=== PATIENT | female | born 1970 ===

== ENCOUNTER 2017-04-19 11:25 | Observation (INO) | payer MEDICAID ==
[2017-04-19 12:24] VITALS: BMI 43.0
[2017-04-19] MEDS ORDERED: Sodium Chloride 0.9% 1,000 ML IV STA (12:28)
--- NOTE | 2017-04-19 13:04 | ED PDOC ---
Arrival/HPI - General Chief Complaint: Abdominal Pain Time Seen by Provider: 04/19/17 12:28 Historian: Patient - History of Present Illness Narrative History of Present Illness (Text): 04/19/17 13:15 A 47 year old female presents to the emergency department complaining of nausea , vomiting and abdominal pain on and off for a year, worsening for the past three days. Patient reports epigastric and right upper quadrant abdominal pain that radiates under her left breast and to her back. Notes abdominal pain is worse after eating certain foods, like burgers. Reports four past caesarean sections but denies any other surgeries. Patient denies any other complaints at this time. PMD: Dr. Anitra Peters Symptom Onset: Sudden Symptom Course: Unchanged Activities at Onset: Rest Context: Home Past Medical History - Provider Review Nursing Documentation Reviewed: Yes - Infectious Disease Hx of Infectious Diseases: None - Tetanus Immunization Tetanus Immunization: Unknown - Reproductive Menopause: No - Cardiac Hx Cardiac Disorders: Yes (Chest pain off & on.) - Pulmonary Hx Asthma: Yes (When she was young.) Hx Bronchitis: Yes (3 years ago.) - Neurological Hx Neurological Disorder: No - HEENT Hx HEENT Disorder: No - Renal Hx Renal Disorder: No - Endocrine/Metabolic Hx Hypothyroidism: Yes - Hematological/Oncological Hx Blood Disorders: No - Integumentary Hx Dermatological Disorder: No - Musculoskeletal/Rheumatological Hx Back Pain: Yes (Low back pain.) - Gastrointestinal Hx Gastrointestinal Disorders: Yes Hx Gastroesophageal Reflux: Yes - Genitourinary/Gynecological Hx Genitourinary Disorders: No - Psychiatric Hx Depression: No Hx Emotional Abuse: No Hx Physical Abuse: No Hx Substance Use: No - Surgical History Hx Section: Yes - Anesthesia Hx Anesthesia: No Hx Anesthesia Reactions: No Hx Malignant Hyperthermia: No - Suicidal Assessment Feels Threatened In Home Enviroment: No Family/Social History - Physician Review Nursing Documentation Reviewed: Yes Family/Social History: No Known Family HX Smoking Status: Former Smoker Hx Alcohol Use: No Hx Substance Use: No Allergies/Home Meds Allergies/Adverse Reactions: Allergies No Known Allergies Allergy (Verified 04/19/17 12:24) Home Medications: Home Meds Medication Instructions Recorded Confirmed Levothyroxine [Synthroid] 0.2 mg PO DAILY 11/28/13 09/18/15 Aspirin [Aspirin EC] 81 mg PO DAILY 07/18/15 09/18/15 Lovastatin [Mevacor] 40 mg PO DAILY 08/13/15 09/18/15 Metformin HCl [Metformin HCl] 850 mg PO BID 08/13/15 09/18/15 Review of Systems - Physician Review All systems were reviewed & negative as marked: Yes - Review of Systems Gastrointestinal: Abdominal Pain, Nausea, Vomiting Musculoskeletal: Back Pain Physical Exam Vital Signs Reviewed: Yes Vital Signs Temp Pulse Resp BP Pulse Ox 04/19/17 16:13 69 18 138/75 99 04/19/17 12:19 99.1 F 77 18 128/75 98 Temperature: Afebrile Blood Pressure: Normal Pulse: Regular Respiratory Rate: Normal Appearance: Positive for: Well-Appearing, Non-Toxic, Comfortable Pain Distress: None Mental Status: Positive for: Alert and Oriented X 3 - Systems Exam Head: Present: Atraumatic, Normocephalic Pupils: Present: PERRL Extroacular Muscles: Present: EOMI Conjunctiva: Present: Normal Mouth: Present: Moist Mucous Membranes Neck: Present: Normal Range of Motion Respiratory/Chest: Present: Clear to Auscultation, Good Air Exchange. No: Respiratory Distress, Accessory Muscle Use Cardiovascular: Present: Regular Rate and Rhythm, Normal S1, S2. No: Murmurs Abdomen: Present: Tenderness (to palpation of RUQ and epigastric ), Normal Bowel Sounds. No: Distention, Peritoneal Signs Back: Present: Normal Inspection Upper Extremity: Present: Normal Inspection. No: Cyanosis, Edema Lower Extremity: Present: Normal Inspection. No: Edema Neurological: Present: GCS=15, CN II-XII Intact, Speech Normal Skin: Present: Warm, Dry, Normal Color. No: Rashes Psychiatric: Present: Alert, Oriented x 3, Normal Insight, Normal Concentration Medical Decision Making ED Course and Treatment: 04/19/17 13:03 Impression: A 47 year old female with nausea, vomiting and right upper quadrant abdominal pain. Differential Diagnosis included but are not limited to: r/o cholelithiasis Plan: -- US abdomen -- labs -- Urinalysis -- Pepcid, IV fluids, ZOfran -- Reassess and disposition Prior Visits: Notes and results from previous visits were reviewed. Patient last reported to the emergency department on 09/18/15 for evaluation of cough and asthma exacerbation. Progress Notes: 04/19/17 14:22 US abdomen Creator : Maddy Vences V. IMPRESSION: Large gallstone, 2.8 cm -near gallbladder neck. Positive sonographic Rizo sign. An intermittent/ early cholecystitis needs to be considered. At this time , no gallbladder wall thickening or pericholecystic fluid suggested. Close follow-up recommended. No dilated ducts - Lab Interpretations Lab Results: 04/19/17 13:01 04/19/17 13:01 Lab Results 04/19/17 13:38: Urine Color Yellow, Urine Appearance Clear, Urine pH 6.0, Ur Specific [place] >= 1.030, Urine Protein 30 H, Urine Glucose (UA) Negative, Urine Ketones Negative, Urine Blood Large H, Urine Nitrate Negative, Urine Bilirubin Negative, Urine Urobilinogen 0.2, Ur Leukocyte Esterase Negative, Urine RBC Tntc, Urine WBC 5 - 10, Ur Epithelial Cells 10 - 12, Urine Bacteria Trace 04/19/17 13:01: Sodium 140, Potassium 4.1, Chloride 105, Carbon Dioxide 24, Anion Gap 15, BUN 12, Creatinine 0.5, Est GFR ( Amer) > 60, Est GFR (Non- Af Amer) > 60, Random Glucose 114 H, Calcium 9.7, Total Bilirubin 0.4, AST 19, ALT 24, Alkaline Phosphatase 145 H, Total Protein 8.3, Albumin 4.5, Globulin 3.8 , Albumin/Globulin Ratio 1.2, Lipase 31 04/19/17 13:01: WBC 11.6 H, RBC 4.91, Hgb 11.8 L, Hct 37.8, MCV 77.0 L, MCH 24.0 L, MCHC 31.2, RDW 16.8 H, Plt Count 326, MPV 9.9, Gran % 64.4, Lymph % ( Auto) 21.6 L, [place] % (Auto) 8.9 H, Eos % (Auto) 4.9, Baso % (Auto) 0.2, Gran # 7.43 H, Lymph # 2.5, [place] # 1.0 H, Eos # 0.6, Baso # 0.02 I have reviewed the lab results: Yes - RAD Interpretation Radiology Orders: 04/19/17 12:45 ABDOMEN COMPLETE [US] Stat 04/19/17 17:57 BILIARY SCAN (HIDA) [NM] Stat - Medication Orders Current Medication Orders: Discontinued Medications Famotidine (Pepcid) 20 mg IVP STAT STA Stop: 04/19/17 12:29 Last Admin: 04/19/17 13:00 Dose: 20 mg Sodium Chloride (Sodium Chloride 0.9%) 1,000 mls @ 250 mls/hr IV .Q4H STA Stop: 04/19/17 16:27 Last Admin: 04/19/17 13:01 Dose: 250 mls/hr Morphine Sulfate (Morphine) 4 mg IVP STAT STA Stop: 04/19/17 14:33 Last Admin: 04/19/17 14:44 Dose: 4 mg Morphine Sulfate (Morphine) 4 mg IVP STAT STA Stop: 04/19/17 17:32 Last Admin: 04/19/17 17:52 Dose: 4 mg Ondansetron HCl (Zofran Inj) 4 mg IVP STAT STA Stop: 04/19/17 12:29 Last Admin: 04/19/17 13:00 Dose: 4 mg Ondansetron HCl (Zofran Inj) 4 mg IVP STAT STA Stop: 04/19/17 17:32 Last Admin: 04/19/17 17:50 Dose: 4 mg - Scribe Statement The provider has reviewed the documentation as recorded by the Kwasi Anaya Provider Scribe Attestation: All medical record entries made by the Kwasi were at my direction and personally dictated by me. I have reviewed the chart and agree that the record accurately reflects my personal performance of the history, physical exam, medical decision making, and the department course for this patient. I have also personally directed, reviewed, and agree with the discharge instructions and disposition. Disposition/Present on Arrival - Present on Arrival Any Indicators Present on Arrival: No History of DVT/PE: No History of Uncontrolled Diabetes: No Urinary Catheter: No History of Decub. Ulcer: No History Surgical Site Infection Following: None - Disposition Have Diagnosis and Disposition been Completed?: Yes Diagnosis: Cholecystitis Disposition Time: 17:00 Condition: STABLE
[2017-04-19 13:05] LABS: BASO # 0.02 K/mm3 (0.0-2.0); BASO % 0.2 % (0.0-3.0); EOS # 0.6 (0.0-0.7); EOS % 4.9 % (1.5-5.0); GRAN # 7.43 (1.4-6.5); GRAN % 64.4 % (50.0-68.0); HEMOGLOBIN 11.8 gm/dL (12.0-16.0); LYMPH # 2.5 (1.2-3.4); LYMPH % 21.6 % (22.0-35.0); MEAN CORPUSCULAR HGB CONC 31.2 g/dl (31.0-37.0); MEAN PLATELET VOLUME 9.9 fl (7.0-11.0); MONO % 8.9 % (1.0-6.0); PLATELET COUNT 326 10^3/uL (120.0-450.0); RBC 4.91 10^6/uL (3.5-6.1); RED CELL DISTRIBUTION WIDTH 16.8 % (11.5-14.5); WHITE BLOOD COUNT 11.6 10^3/ul (4.5-11.0)
[2017-04-19 13:15] LABS: ALB/GLOB RATIO 1.2 (1.1-1.8); ALBUMIN 4.5 g/dL (3.0-4.8); ALT/SGPT 24 U/L (7-56); AST/SGOT 19 U/L (15-39); BLOOD UREA NITROGEN 12 mg/dL (7-21); CALCIUM 9.7 mg/dL (8.4-10.5); GFR AFRICAN-AMERICAN > 60; GFR NON-AFRICAN AMERICAN > 60; LIPASE 31 U/L (23-300)
[2017-04-19 13:52] LABS: URINE APPEARANCE CLEAR (CLEAR); URINE BILIRUBIN NEGATIVE (NEGATIVE); URINE BLOOD LARGE (NEGATIVE); URINE COLOR YELLOW (YELLOW); URINE GLUCOSE (UA) NEGATIVE (NEGATIVE); URINE LEUKOCYTE ESTERASE NEGATIVE Leu/uL (NEGATIVE); URINE NITRATE NEGATIVE (NEGATIVE); URINE PROTEIN 30 mg/dL (<30 mg/dL); URINE UROBILINOGEN 0.2 E.U./dL (<1 E.U./dL)
[2017-04-19 13:54] LABS: URINE RBC TNTC /hpf (0-2)
[2017-04-19 13:55] LABS: URINE BACTERIA TRACE (NEG)
--- NOTE | 2017-04-19 14:20 | US ---
HISTORY: epigastric and RUQ tenderness COMPARISON: None TECHNIQUE: Sonographic evaluation of the abdomen. FINDINGS: LIVER: Measures 19.1 x 10.1 x 10.8 cm. Normal echogenicity of the liver parenchyma. No mass. No intrahepatic bile duct dilatation. GALLBLADDER: Large gallstone measuring at least 2.8 cm. Near the gallbladder neck. Positive sonographic Rizo sign elicited no pericholecystic fluid. No gallbladder wall edema COMMON BILE DUCT: Measures 5 mm. No stones. No dilatation. PANCREAS: Unremarkable as visualized. No mass. No ductal dilatation. RIGHT KIDNEY: Measures 10.6 x 4.1 x 3.8cm. Normal echogenicity. No calculus, mass, or hydronephrosis. LEFT KIDNEY: Measures 11.7 x 5.9 x 5.2cm. Normal echogenicity. No calculus, mass, or hydronephrosis. SPLEEN: Normal in size and contour. No mass. AORTA: No aneurysmal dilatation. IVC: Unremarkable. OTHER FINDINGS: None. IMPRESSION: Large gallstone, 2.8 cm -near gallbladder neck. Positive sonographic Rizo sign. An intermittent/ early cholecystitis needs to be considered. At this time, no gallbladder wall thickening or pericholecystic fluid suggested. Close follow-up recommended. No dilated ducts
[2017-04-19] MEDS ORDERED: Morphine 4 mg/ml ISec IVP STA ×2 (14:32→17:31)
--- NOTE | 2017-04-19 19:10 | CP.PCM.CON ---
<Arcadio Floyd Yoly - Last Filed: 04/19/17 19:07> History of Present Illness - History of Present Illness History of Present Illness: Gen Sx: Dr Norris Pt is a 47F with PMH of DM, HTN, hypothyroidism who presents 3 days of RUQ pain , consistent and progressively worsening, sharp in nature and radiates to right scapula. Associated with N/V, non-billous and non-bloody. Pt also admits to fever of 101 at home yesterday. Denies chills, diarrhea or constipation, sob, no chest pain. Pt has had symptoms similar to this in the past over the past year. PMH: as above PSH: x 3, myomectomy NKDA Review of Systems - Review of Systems All systems: reviewed and no additional remarkable complaints except (as per hpi ) Past Patient History - Infectious Disease Hx of Infectious Diseases: None - Tetanus Immunizations Tetanus Immunization: Unknown - Past Medical History & Family History Past Medical History?: Yes - Past Social History Smoking Status: Former Smoker - CARDIAC Hx Cardiac Disorders: Yes (Chest pain off & on.) - PULMONARY Hx Asthma: Yes (When she was young.) Hx Bronchitis: Yes (3 years ago.) - NEUROLOGICAL Hx Neurological Disorder: No - HEENT Hx HEENT Problems: No - RENAL Hx Chronic Kidney Disease: No - ENDOCRINE/METABOLIC Hx Hypothyroidism: Yes - HEMATOLOGICAL/ONCOLOGICAL Hx Blood Disorders: No - INTEGUMENTARY Hx Dermatological Problems: No - MUSCULOSKELETAL/RHEUMATOLOGICAL Hx Back Pain: Yes (Low back pain.) - GASTROINTESTINAL Hx Gastrointestinal Disorders: Yes Hx Gastroesophageal Reflux: Yes - GENITOURINARY/GYNECOLOGICAL Hx Genitourinary Disorders: No - PSYCHIATRIC Hx Depression: No Hx Emotional Abuse: No Hx Physical Abuse: No Hx Substance Use: No - SURGICAL HISTORY Hx Section: Yes - ANESTHESIA Hx Anesthesia: No Hx Anesthesia Reactions: No Hx Malignant Hyperthermia: No Meds Allergies/Adverse Reactions: Allergies Allergy/AdvReac Type Severity Reaction Status Date / Time No Known Allergies Allergy Verified 04/19/17 22:51 Physical Exam - Constitutional Appears: Non-toxic, No Acute Distress - Head Exam Head Exam: ATRAUMATIC - Eye Exam Eye Exam: EOMI, PERRL. absent: Scleral icterus - ENT Exam ENT Exam: Mucous Membranes Moist, Normal Exam - Respiratory Exam Respiratory Exam: absent: Accessory Muscle Use, Respiratory Distress - Cardiovascular Exam Cardiovascular Exam: REGULAR RHYTHM. absent: Tachycardia - GI/Abdominal Exam GI & Abdominal Exam: Soft, Tenderness (RUQ). absent: Distended, Firm, Guarding , Hernia, Rebound, Rigid - Extremities Exam Extremities exam: Positive for: pedal pulses present. Negative for: pedal edema - Neurological Exam Neurological exam: Alert, Oriented x3 - Psychiatric Exam Psychiatric exam: Normal Affect, Normal Mood - Skin Skin Exam: Normal Color, Warm Results - Vital Signs Recent Vital Signs: Last Vital Signs Temp 99.1 F 04/19/17 12:19 Pulse 69 04/19/17 16:13 Resp 18 04/19/17 16:13 BP 138/75 04/19/17 16:13 Pulse Ox 99 04/19/17 16:13 - Labs Result Diagrams: 04/19/17 13:01 04/19/17 13:01 Assessment & Plan - Assessment and Plan (Free Text) Assessment: 47F with RUQ pain x 3 days Plan: NPO IV Fluids abx HIDA scan r/o cholecystitis d/w Dr Jr Floyd, PGY3 - Date & Time Date: 04/19/17 Time: 19:11 <Pio Worthy - Last Filed: 04/20/17 00:12> Meds - Medications Medications: Current Medications Albuterol Sulfate (Albuterol 0.083% Inhal Perla (2.5 Mg/3 Ml) Ud) 2.5 mg IH [id number] PRN PRN Reason: Wheezing Famotidine (Pepcid) 20 mg IVP DAILY [facility] Sodium Chloride (Sodium Chloride 0.9%) 1,000 mls @ 125 mls/hr IV .Q8H [facility] Last Admin: 04/19/17 21:25 Dose: 125 mls/hr Piperacillin Sod/Tazobactam Sod (Zosyn 3.375 In Ns 100ml) 100 mls @ 200 mls/hr IVPB Q6 [facility] PRN Reason: Protocol Stop: 04/20/17 06:29 Last Admin: 04/19/17 23:49 Dose: 200 mls/hr Insulin Human Regular (Humulin R Low) 0 units SC ACHS LISA PRN Reason: Protocol Morphine Sulfate (Morphine) 4 mg IVP Q4H PRN PRN Reason: Pain, moderate (4-7) Last Admin: 04/19/17 21:48 Dose: 4 mg Ondansetron HCl (Zofran Inj) 4 mg IVP Q8H PRN PRN Reason: Nausea/Vomiting Results - Vital Signs Recent Vital Signs: Last Vital Signs Temp 99.1 F 04/19/17 12:19 Pulse 68 04/19/17 19:41 Resp 18 04/19/17 19:41 BP 125/71 04/19/17 19:41 Pulse Ox 99 04/19/17 19:41 - Labs Result Diagrams: 04/19/17 22:13 04/19/17 22:13 Labs: Laboratory Results - last 24 hr 04/19/17 04/19/17 04/19/17 22:13 22:13 22:13 WBC 11.3 H RBC 4.35 Hgb 10.5 L Hct 33.5 L MCV 77.0 L MCH 24.1 L MCHC 31.3 RDW 17.0 H Plt Count 303 MPV 9.2 Gran % 60.5 Lymph % (Auto) 26.8 [place] % (Auto) 8.1 H Eos % (Auto) 4.3 Baso % (Auto) 0.3 Gran # 6.84 H Lymph # 3.0 [place] # 0.9 H Eos # 0.5 Baso # 0.03 PT 10.9 INR 1.01 Sodium 138 Potassium 4.1 Chloride 104 Carbon Dioxide 27 Anion Gap 11 BUN 10 Creatinine 0.6 Est GFR ( Amer) > 60 Est GFR (Non-Af Amer) > 60 Random Glucose 87 Calcium 9.1 Total Bilirubin 0.6 AST 23 ALT 32 Alkaline Phosphatase 132 Total Protein 7.5 Albumin 3.9 Globulin 3.5 Albumin/Globulin Ratio 1.1 Attending/Attestation - Attestation I have personally seen and examined this patient.: Yes I have fully participated in the care of the patient.: Yes I have reviewed all pertinent clinical information: Yes Notes (Text): 04/20/17 00:05 Patient was seen in when she was in bed # 369-01. Agree with history , physical examination , assessment and plan. Gives history of BIGG, family history of [place], thyroid cancer. She complained of heaviness in chest also. Serial EKG, troponin ordered.Will need clearance by cardilolgy prior to surgery. HIDA scan is negative for cholecystitis.
--- NOTE | 2017-04-19 19:12 | CP.PCM.HP ---
History of Present Illness - History of Present Illness History of Present Illness: CC: Abdominal Pain 47 year old female patient PMH DM II, Asthma, HLD, Hypothyroidism presents to [facility] ED on 04/19/2017 with complaints of three days of severe abdominal pain. She states that the pain initially started three and a half years ago on and off but she would normally use advil to alleviate the pain. These past three days however have been unbearable. Patient states that the pain started on Monday when she ate a burger at a constitution party, and has been constant since. Pain medications did not relieve the pain. She states that the pain is located in her upper epigastric area and radiates to behind her left breast and back. She characterizes the pain as several sharp pins in her RUQ. Pain is exacerbated especially by fatty meals and laying on the right lateral decubitus position. Pain currently has no relieving factors. Patient admits to associated nausea and vomiting the past three days, patient denies current complaints of chest pain, shortness of breath, headache. PMD:[employer] in process of establishing care with a PMD PMH: as above PSH: 3 C-sections, uterine cancerous cell removal SH: denies smoking, illicit drug use, admits to occasional alcohol consumption Allergies: NKDA Present on Admission - Present on Admission Any Indicators Present on Admission: No Review of Systems - Constitutional Constitutional: Chills. absent: Excessive Sweating, Headache - EENT Eyes: absent: Change in Vision, Irritation - Breasts Breasts: As Per HPI, Pain - Cardiovascular Cardiovascular: absent: Palpitations - Gastrointestinal Gastrointestinal: Abdominal Pain, Change in Bowel Habits, Nausea, Vomiting - Neurological Neurological: absent: Abnormal Speech, Behavioral Changes, Confusion Past Patient History - Infectious Disease Hx of Infectious Diseases: None - Tetanus Immunizations Tetanus Immunization: Unknown - Past Medical History & Family History Past Medical History?: Yes - Past Social History Smoking Status: Former Smoker - CARDIAC Hx Cardiac Disorders: Yes (Chest pain off & on.) - PULMONARY Hx Asthma: Yes (When she was young.) Hx Bronchitis: Yes (3 years ago.) - NEUROLOGICAL Hx Neurological Disorder: No - HEENT Hx HEENT Problems: No - RENAL Hx Chronic Kidney Disease: No - ENDOCRINE/METABOLIC Hx Hypothyroidism: Yes - HEMATOLOGICAL/ONCOLOGICAL Hx Blood Disorders: No - INTEGUMENTARY Hx Dermatological Problems: No - MUSCULOSKELETAL/RHEUMATOLOGICAL Hx Back Pain: Yes (Low back pain.) - GASTROINTESTINAL Hx Gastrointestinal Disorders: Yes Hx Gastroesophageal Reflux: Yes - GENITOURINARY/GYNECOLOGICAL Hx Genitourinary Disorders: No - PSYCHIATRIC Hx Depression: No Hx Emotional Abuse: No Hx Physical Abuse: No Hx Substance Use: No - SURGICAL HISTORY Hx Section: Yes - ANESTHESIA Hx Anesthesia: No Hx Anesthesia Reactions: No Hx Malignant Hyperthermia: No Meds Allergies/Adverse Reactions: Allergies Allergy/AdvReac Type Severity Reaction Status Date / Time No Known Allergies Allergy Verified 04/19/17 12:24 Physical Exam - Constitutional Appears: Non-toxic, No Acute Distress - Head Exam Head Exam: ATRAUMATIC, NORMAL INSPECTION, NORMOCEPHALIC - Eye Exam Eye Exam: EOMI, Normal appearance Pupil Exam: NORMAL ACCOMODATION - ENT Exam ENT Exam: Mucous Membranes Moist, Normal Exam - Neck Exam Neck exam: Positive for: Normal Inspection. Negative for: Tenderness - Respiratory Exam Respiratory Exam: Clear to Auscultation Bilateral, NORMAL BREATHING PATTERN. absent: Accessory Muscle Use, Decreased Breath Sounds - Cardiovascular Exam Cardiovascular Exam: REGULAR RHYTHM. absent: Clicks, Gallop - GI/Abdominal Exam GI & Abdominal Exam: Normal Bowel Sounds, Soft, Tenderness. absent: Diminished Bowel Sounds - Rectal Exam Rectal Exam: NORMAL INSPECTION - Neurological Exam Neurological exam: Alert, Oriented x3 - Skin Skin Exam: Intact, Normal Color, Warm Results - Vital Signs Recent Vital Signs: Last Vital Signs Temp 99.1 F 04/19/17 12:19 Pulse 69 04/19/17 16:13 Resp 18 04/19/17 16:13 BP 138/75 04/19/17 16:13 Pulse Ox 99 04/19/17 16:13 - Labs Result Diagrams: 04/19/17 22:13 04/19/17 22:13 Assessment & Plan - Assessment and Plan (Free Text) Assessment: 47 year old female PMH DM II, HLD, Hypothyroidism, Asthma presented to [facility] ED on 04/19/17 with a diagnosis of cholecystitis. Plan: 1. Cholecystitis -Abdominal US reveals large gall stone, + sonographic Rizo sign -HIDA scan results pending -WBC 11.6; afebrile -Continue with Zosyn 3.375 gm IV -Will remain NPO until surgery tomorrow morning -GI and Gen surg consulted -Morphine 4mg IV q 6 for pain 2. DM II -Sliding scale Human regular-low -Fingerstick q 6 hours 3.Hypothyroidism -Continue with Levoxthyroxine 0.2 mg qD 4.Hyperlipidemia -Continue with Lovastatin 40 mg BID 5.Asthma -Continue with Albuterol 0.9 mg 2 puff q6H DVT/GI prophylaxis- SCDs/Pepcid 20 mg
[2017-04-19] MEDS: Sodium Chloride 0.9% 1,000 ML IV SCH (21:25)
[2017-04-19] MEDS: Morphine 4 mg/ml ISec IVP PRN (21:48)
[2017-04-19] MEDS ORDERED: Insulin Reg-LOW-Coverage SC SCH (22:00)
[2017-04-19] MEDS ORDERED: Albuterol 0.083% Inhal Sol (2.5 mg/3 mL) UD IH PRN (22:18)
[2017-04-19 22:20] LABS: BASO # 0.03 K/mm3 (0.0-2.0); BASO % 0.3 % (0.0-3.0); EOS # 0.5 (0.0-0.7); EOS % 4.3 % (1.5-5.0); GRAN # 6.84 (1.4-6.5); GRAN % 60.5 % (50.0-68.0); HEMOGLOBIN 10.5 gm/dL (12.0-16.0); LYMPH % 26.8 % (22.0-35.0); MEAN CORPUSCULAR HEMOGLOBIN 24.1 pg (25.0-35.0); MEAN CORPUSCULAR HGB CONC 31.3 g/dl (31.0-37.0); MEAN PLATELET VOLUME 9.2 fl (7.0-11.0); MONO # 0.9 (0.1-0.6); MONO % 8.1 % (1.0-6.0); PLATELET COUNT 303 10^3/uL (120.0-450.0); RBC 4.35 10^6/uL (3.5-6.1); WHITE BLOOD COUNT 11.3 10^3/ul (4.5-11.0)
[2017-04-19 22:26] LABS: ALB/GLOB RATIO 1.1 (1.1-1.8); ALBUMIN 3.9 g/dL (3.0-4.8); ALT/SGPT 32 U/L (7-56); AST/SGOT 23 U/L (15-39); BLOOD UREA NITROGEN 10 mg/dL (7-21); CALCIUM 9.1 mg/dL (8.4-10.5); GFR AFRICAN-AMERICAN > 60; GFR NON-AFRICAN AMERICAN > 60
[2017-04-19 22:28] LABS: INR 1.01 (0.93-1.08); PROTHROMBIN TIME 10.9 Seconds (9.9-11.8)
[2017-04-19] MEDS: Piperacillin/Tazobact 3.375 gm 100 ML IVPB SCH (23:49)
[2017-04-20] MEDS: Morphine 4 mg/ml ISec IVP PRN ×4 (03:29→14:31)
[2017-04-20] MEDS: Piperacillin/Tazobact 3.375 gm 100 ML IVPB SCH (05:13)
[2017-04-20] MEDS ORDERED: Insulin Reg-LOW-Coverage SC SCH (06:00)
--- NOTE | 2017-04-20 07:14 | CP.PCM.PN ---
Subjective - Date & Time of Evaluation Date of Evaluation: 04/20/17 Time of Evaluation: 07:14 - Subjective Subjective: Gen Sx: Dr Norris Pt S&E. Still with pain in RUQ, but improved from yesterday. Has been eating ice chips but reports increase in pain each time she does. Denies any further f /c, n/v. Pt had HIDA scan done yesterday, appears negative, pending official read. Objective - Vital Signs/Intake and Output Vital Signs (last 24 hours): Temp Pulse Resp BP Pulse Ox 99.1 F 73 18 125/71 99 04/20/17 00:00 04/20/17 05:32 04/20/17 00:00 04/20/17 00:00 04/19/17 19:41 Intake and Output: 04/20/17 04/20/17 06:59 18:59 Intake Total 0 Balance 0 - Medications Medications: Current Medications Albuterol Sulfate (Albuterol 0.083% Inhal Perla (2.5 Mg/3 Ml) Ud) 2.5 mg IH [id number] PRN PRN Reason: Wheezing Famotidine (Pepcid) 20 mg IVP DAILY [facility] Sodium Chloride (Sodium Chloride 0.9%) 1,000 mls @ 125 mls/hr IV .Q8H [facility] Last Admin: 04/19/17 21:25 Dose: 125 mls/hr Insulin Human Regular (Humulin R Low) 0 units SC Q6 [facility] PRN Reason: Protocol Last Admin: 04/20/17 06:18 Dose: Not Given Morphine Sulfate (Morphine) 4 mg IVP Q4H PRN PRN Reason: Pain, moderate (4-7) Last Admin: 04/20/17 07:02 Dose: 4 mg Ondansetron HCl (Zofran Inj) 4 mg IVP Q8H PRN PRN Reason: Nausea/Vomiting Last Admin: 04/20/17 03:29 Dose: 4 mg - Labs Labs: 04/19/17 22:13 04/19/17 22:13 PT 10.9 Seconds (9.9-11.8) 04/19/17 22:13 INR 1.01 (0.93-1.08) 04/19/17 22:13 - Constitutional Appears: Non-toxic, No Acute Distress - Eye Exam Eye Exam: EOMI - ENT Exam ENT Exam: Mucous Membranes Moist - Respiratory Exam Respiratory Exam: absent: Accessory Muscle Use, Respiratory Distress - Cardiovascular Exam Cardiovascular Exam: REGULAR RHYTHM - GI/Abdominal Exam GI & Abdominal Exam: Soft, Tenderness (RUQ but improved). absent: Distended, Firm, Guarding, Rigid - Neurological Exam Neurological Exam: Alert, Awake, Oriented x3 - Skin Skin Exam: Normal Color, Warm Assessment and Plan - Assessment and Plan (Free Text) Assessment: 47F with RUQ pain Plan: cont NPO IV fluids abx HIDA appears negative - pending official read further recommendations to follow will d/w Dr Jr Floyd, PGY3
--- NOTE | 2017-04-20 07:42 | CP.PCM.CON ---
<Renetta Rawls - Last Filed: 04/20/17 09:31> History of Present Illness - History of Present Illness History of Present Illness: Miracle Spann is a 47F w/ hx of DM2, HLD, and hypothyroid who presents to the ED with complaints of Abd pain. Pt pain is located in RUQ and onset was 4 days. Pt has been constant peaking to a 10/10 and baseline of 8 out 10. Pt states that the pain radiates to her back. Pt reports having fever on Day 1 but denies any fever, chills, or diaphoresis afterward. She states that she has had a slimiliar pain for the past 1-1.5 years, but it usuallky subsides. The pain usually starts after a fatty meal. This event started after eating a burger at a BBQ. Pt states that since then she has been having persistent nausea and vomiting. Pt states that she has not been able to eat or even brush her teeth without nausea. + weekly NSAID use. + Heavy menses. Denies any BRBPR, melena, or coffee ground emesis. PMH: DM, HLD, hypothyroid, biliary colic PSH: 3 C-sections, uterine cancerous cell removal SH: denies smoking, illicit drug use, admits to occasional alcohol consumption Family hx: Mother of colon Ca, diag age 40s and in her 50's, Materal GM: incarcerated hernia? Endoscopy hx: Denies any uppers or lowers ROS: 12-point ROS was conducted by me and was neg other than what was stated above Past Patient History - Infectious Disease Hx of Infectious Diseases: None - Tetanus Immunizations Tetanus Immunization: Unknown - Past Medical History & Family History Past Medical History?: Yes - Past Social History Smoking Status: Former Smoker - CARDIAC Hx Cardiac Disorders: Yes (Chest pain off & on.) - PULMONARY Hx Asthma: Yes (When she was young.) Hx Bronchitis: Yes (3 years ago.) - NEUROLOGICAL Hx Neurological Disorder: No - HEENT Hx HEENT Problems: No - RENAL Hx Chronic Kidney Disease: No - ENDOCRINE/METABOLIC Hx Hypothyroidism: Yes - HEMATOLOGICAL/ONCOLOGICAL Hx Blood Disorders: No - INTEGUMENTARY Hx Dermatological Problems: No - MUSCULOSKELETAL/RHEUMATOLOGICAL Hx Back Pain: Yes (Low back pain.) Hx Falls: No - GASTROINTESTINAL Hx Gastrointestinal Disorders: Yes Hx Gastroesophageal Reflux: Yes - GENITOURINARY/GYNECOLOGICAL Hx Genitourinary Disorders: No - PSYCHIATRIC Hx Depression: No Hx Emotional Abuse: No Hx Physical Abuse: No Hx Substance Use: No - SURGICAL HISTORY Other/Comment: - ANESTHESIA Hx Anesthesia: No Hx Anesthesia Reactions: No Hx Malignant Hyperthermia: No Meds Allergies/Adverse Reactions: Allergies Allergy/AdvReac Type Severity Reaction Status Date / Time No Known Allergies Allergy Verified 04/19/17 22:51 - Medications Medications: Current Medications Albuterol Sulfate (Albuterol 0.083% Inhal Perla (2.5 Mg/3 Ml) Ud) 2.5 mg IH [id number] PRN PRN Reason: Wheezing Famotidine (Pepcid) 20 mg IVP DAILY LISA Sodium Chloride (Sodium Chloride 0.9%) 1,000 mls @ 125 mls/hr IV .Q8H LISA Last Admin: 04/19/17 21:25 Dose: 125 mls/hr Insulin Human Regular (Humulin R Low) 0 units SC Q6 LISA PRN Reason: Protocol Last Admin: 04/20/17 06:18 Dose: Not Given Morphine Sulfate (Morphine) 4 mg IVP Q4H PRN PRN Reason: Pain, moderate (4-7) Last Admin: 04/20/17 07:02 Dose: 4 mg Ondansetron HCl (Zofran Inj) 4 mg IVP Q8H PRN PRN Reason: Nausea/Vomiting Last Admin: 04/20/17 03:29 Dose: 4 mg Physical Exam - Constitutional Appears: Well, Non-toxic, In Acute Distress - Head Exam Head Exam: ATRAUMATIC, NORMOCEPHALIC - Eye Exam Eye Exam: EOMI, Normal appearance - ENT Exam ENT Exam: Mucous Membranes Moist, Normal Exam - Neck Exam Neck exam: Positive for: Normal Inspection - Respiratory Exam Respiratory Exam: Clear to Auscultation Bilateral, NORMAL BREATHING PATTERN - Cardiovascular Exam Cardiovascular Exam: REGULAR RHYTHM, +S1, +S2 - GI/Abdominal Exam GI & Abdominal Exam: Normal Bowel Sounds, Soft, Tenderness - Neurological Exam Neurological exam: Alert, Oriented x3 - Psychiatric Exam Psychiatric exam: Normal Affect, Normal Mood Results - Vital Signs Recent Vital Signs: Last Vital Signs Temp 99.1 F 04/20/17 00:00 Pulse 73 04/20/17 05:32 Resp 18 04/20/17 00:00 BP 125/71 04/20/17 00:00 Pulse Ox 99 04/19/17 19:41 - Labs Result Diagrams: 04/19/17 22:13 04/19/17 22:13 Labs: Laboratory Results - last 24 hr 04/19/17 04/19/17 04/19/17 22:13 22:13 22:13 WBC 11.3 H RBC 4.35 Hgb 10.5 L Hct 33.5 L MCV 77.0 L MCH 24.1 L MCHC 31.3 RDW 17.0 H Plt Count 303 MPV 9.2 Gran % 60.5 Lymph % (Auto) 26.8 Dixie % (Auto) 8.1 H Eos % (Auto) 4.3 Baso % (Auto) 0.3 Gran # 6.84 H Lymph # 3.0 Dixie # 0.9 H Eos # 0.5 Baso # 0.03 PT 10.9 INR 1.01 Sodium 138 Potassium 4.1 Chloride 104 Carbon Dioxide 27 Anion Gap 11 BUN 10 Creatinine 0.6 Est GFR ( Amer) > 60 Est GFR (Non-Af Amer) > 60 Random Glucose 87 Calcium 9.1 Total Bilirubin 0.6 AST 23 ALT 32 Alkaline Phosphatase 132 Troponin I Total Protein 7.5 Albumin 3.9 Globulin 3.5 Albumin/Globulin Ratio 1.1 04/19/17 04/20/17 22:13 06:30 WBC RBC Hgb Hct MCV MCH MCHC RDW Plt Count MPV Gran % Lymph % (Auto) Dixie % (Auto) Eos % (Auto) Baso % (Auto) Gran # Lymph # Dixie # Eos # Baso # PT INR Sodium Potassium Chloride Carbon Dioxide Anion Gap BUN Creatinine Est GFR ( Amer) Est GFR (Non-Af Amer) Random Glucose Calcium Total Bilirubin AST ALT Alkaline Phosphatase Troponin I < 0.01 < 0.01 Total Protein Albumin Globulin Albumin/Globulin Ratio - Impressions Impression: HIDA: reported no acute cholecystitis - Imaging and Cardiology US - abdomen Status: Report reviewed by me (no fluid around gallbladder, no wall thickening, CBD normal 5mm) Assessment & Plan - Assessment and Plan (Free Text) Assessment: Miracle Spann is a 47F w/ hx of HL, DM, and hypothyroid who presents to the ED w / complaints of abd pain. Pt likely has biliary colic vs acute cholecystitis. There is no evidence of CBD, GB wall thickening, or Fluid around the BM. HIDA was WNL. Abd pain likely 2/2 biliary colic -can be early cholecystitis though does not have imaging or fever -would consider deescalating abx to ceftriaxone -agree with surgery for lap jeni -CBD WNL 5mm, no evidence of stone in CBD or cholangitis - no acute intervention from GI at this time Cholelithiasis -agree with lap jeni Family hx of colon Ca -would recommend colon screening as outpt Will D/W Dr. Gomez <Arun Gomez - Last Filed: 04/20/17 09:55> Meds - Medications Medications: Current Medications Albuterol Sulfate (Albuterol 0.083% Inhal Perla (2.5 Mg/3 Ml) Ud) 2.5 mg IH [id number] PRN PRN Reason: Wheezing Famotidine (Pepcid) 20 mg IVP DAILY LISA Sodium Chloride (Sodium Chloride 0.9%) 1,000 mls @ 125 mls/hr IV .Q8H LISA Last Admin: 04/19/17 21:25 Dose: 125 mls/hr Insulin Human Regular (Humulin R Low) 0 units SC ACHS LISA PRN Reason: Protocol Morphine Sulfate (Morphine) 4 mg IVP Q4H PRN PRN Reason: Pain, moderate (4-7) Last Admin: 04/20/17 07:02 Dose: 4 mg Ondansetron HCl (Zofran Inj) 4 mg IVP Q8H PRN PRN Reason: Nausea/Vomiting Last Admin: 04/20/17 03:29 Dose: 4 mg Results - Vital Signs Recent Vital Signs: Last Vital Signs Temp 98.2 F 04/20/17 08:38 Pulse 72 04/20/17 08:38 Resp 20 04/20/17 08:38 BP 108/63 04/20/17 08:38 Pulse Ox 98 04/20/17 08:38 - Labs Result Diagrams: 04/19/17 22:13 04/19/17 22:13 Labs: Laboratory Results - last 24 hr 04/19/17 04/19/17 04/19/17 22:13 22:13 22:13 WBC 11.3 H RBC 4.35 Hgb 10.5 L Hct 33.5 L MCV 77.0 L MCH 24.1 L MCHC 31.3 RDW 17.0 H Plt Count 303 MPV 9.2 Gran % 60.5 Lymph % (Auto) 26.8 Dix[place] % (Auto) 8.1 H Eos % (Auto) 4.3 Baso % (Auto) 0.3 Gran # 6.84 H Lymph # 3.0 Dixie # 0.9 H Eos # 0.5 Baso # 0.03 PT 10.9 INR 1.01 Sodium 138 Potassium 4.1 Chloride 104 Carbon Dioxide 27 Anion Gap 11 BUN 10 Creatinine 0.6 Est GFR ( Amer) > 60 Est GFR (Non-Af Amer) > 60 Random Glucose 87 Calcium 9.1 Total Bilirubin 0.6 AST 23 ALT 32 Alkaline Phosphatase 132 Troponin I Total Protein 7.5 Albumin 3.9 Globulin 3.5 Albumin/Globulin Ratio 1.1 04/19/17 04/20/17 22:13 06:30 WBC RBC Hgb Hct MCV MCH MCHC RDW Plt Count MPV Gran % Lymph % (Auto) Dixie % (Auto) Eos % (Auto) Baso % (Auto) Gran # Lymph # Dixie # Eos # Baso # PT INR Sodium Potassium Chloride Carbon Dioxide Anion Gap BUN Creatinine Est GFR ( Amer) Est GFR (Non-Af Amer) Random Glucose Calcium Total Bilirubin AST ALT Alkaline Phosphatase Troponin I < 0.01 < 0.01 Total Protein Albumin Globulin Albumin/Globulin Ratio Attending/Attestation - Attestation I have personally seen and examined this patient.: Yes I have fully participated in the care of the patient.: Yes I have reviewed all pertinent clinical information: Yes Notes (Text): 04/20/17 09:53 47 year old female with HLD, DM, Obesity, and hypothyroidism admitted with abdominal pain found to have gallstones. 1. Biliary colic 2. Cholelithiasis 3. Family history of Colon cancer Plan: -recommend surgical evaluation for cholecystectomy -pain control as needed -US and HIDA are negative for acute cholecystitis -no strong indication for antibiotics at this time -CBD is non-dilated nad lfts are normal, so no evidence of choledocholithiasis -she needs an outpatient colonoscopy due to her family history of colon cancer in a 1st degree relative < 60 -will sign off at this time
--- NOTE | 2017-04-20 07:43 | NM ---
PROCEDURE: Radionuclide hepatobiliary scan HISTORY: cholecystitis COMPARISON: Abdominal ultrasound 04/19/2017 TECHNIQUE: Following the intravenous administration of 5.5 mCi of technetium 99 M mebrofenin, sequential images of the abdomen were obtained up until 3 hours post administration. FINDINGS: There is normal uptake and excretion of the radiopharmaceutical by the liver. There is no biliary dilatation seen. There is radiopharmaceutical seen within the bowel by 15 minutes. There is activity seen within the gallbladder by 30 minutes. There is no evidence of cystic duct obstruction. IMPRESSION: No evidence of cystic duct obstruction. Preliminary interpretation of this examination was reported by [facility] at 11:42 p.m. on 04/19/2017. There is concurrence of this report with the preliminary interpretation.
[2017-04-20 08:39] VITALS: RESP 20
[2017-04-20] MEDS ORDERED: Albuterol-Ipratrop 3 mg / 0.5 (3 ml) UD IH STA (09:07)
--- NOTE | 2017-04-20 09:20 | RAD ---
HISTORY: Pre-Op evaluation COMPARISON: 09/18/2015 TECHNIQUE: Chest PA and lateral FINDINGS: LUNGS: No active pulmonary disease. PLEURA: No significant pleural effusion identified. No pneumothorax apparent. CARDIOVASCULAR: Normal. OSSEOUS STRUCTURES: No significant abnormalities. VISUALIZED UPPER ABDOMEN: Normal. OTHER FINDINGS: None. IMPRESSION: No active disease.
--- NOTE | 2017-04-20 10:47 | CARD ---
APPROVED REPORT EKG Measurement Heart [id number] [place] [id number] <Conclusion> Sinus bradycardia Otherwise normal ECG
--- NOTE | 2017-04-20 10:49 | CARD ---
APPROVED REPORT EKG Measurement Heart [id number] [place] 168P39 [id number] <Conclusion> Normal sinus rhythm Normal ECG
--- NOTE | 2017-04-20 10:50 | CARD ---
APPROVED REPORT EKG Measurement Heart [id number] [place] 166P52 [id number] <Conclusion> Normal sinus rhythm Normal ECG
[2017-04-20] MEDS: Sodium Chloride 0.9% 1,000 ML IV SCH (11:02)
[2017-04-20 11:35] LABS: BASO # 0.02 K/mm3 (0.0-2.0); BASO % 0.2 % (0.0-3.0); EOS # 0.4 (0.0-0.7); EOS % 4.6 % (1.5-5.0); GRAN # 6.36 (1.4-6.5); GRAN % 66.1 % (50.0-68.0); HEMOGLOBIN 10.6 gm/dL (12.0-16.0); LYMPH % 20.9 % (22.0-35.0); MEAN CELL VOLUME 77.5 fL (80.0-105.0); MEAN CORPUSCULAR HEMOGLOBIN 23.9 pg (25.0-35.0); MEAN CORPUSCULAR HGB CONC 30.8 g/dl (31.0-37.0); MEAN PLATELET VOLUME 9.5 fl (7.0-11.0); MONO # 0.8 (0.1-0.6); MONO % 8.2 % (1.0-6.0); PLATELET COUNT 307 10^3/uL (120.0-450.0); RBC 4.44 10^6/uL (3.5-6.1); RED CELL DISTRIBUTION WIDTH 16.8 % (11.5-14.5); WHITE BLOOD COUNT 9.6 10^3/ul (4.5-11.0)
[2017-04-20 11:45] LABS: ALB/GLOB RATIO 1.2 (1.1-1.8); ALBUMIN 4.1 g/dL (3.0-4.8); ALT/SGPT 33 U/L (7-56); AST/SGOT 29 U/L (15-39); BLOOD UREA NITROGEN 9 mg/dL (7-21); CALCIUM 9.1 mg/dL (8.4-10.5); GFR AFRICAN-AMERICAN > 60; GFR NON-AFRICAN AMERICAN > 60
[2017-04-20 11:58] LABS: TROPONIN I < 0.01 ng/mL
[2017-04-20] MEDS: Insulin Reg-LOW-Coverage SC SCH ×3 (12:11→21:46)
[2017-04-20] MEDS: Levothyroxine 200 MCG TAB PO SCH (12:20)
[2017-04-20] MEDS: cefTRIAXone 1 gm 1 GM/100 ML BAG IVPB SCH (12:20)
[2017-04-20 12:29] LABS: TROPONIN I < 0.01 ng/mL
--- NOTE | 2017-04-20 15:06 | CARD ---
APPROVED REPORT EKG Measurement Heart [id number] [place] 162P41 [id number] <Conclusion> Normal sinus rhythm with sinus arrhythmia Normal ECG
--- NOTE | 2017-04-20 15:21 | CP.PCM.PN ---
<VICTOR M MERCER - Last Filed: 04/20/17 23:34> Subjective - Date & Time of Evaluation Date of Evaluation: 04/20/17 Time of Evaluation: 10:45 - Subjective Subjective: Pt seen and examined bedside this am. Pt reports that she is still experiencing diffuse abdominal pain, rated 10/10. Reports nausea with dry heaving, does not feel hungry. Denies fever, chills, diarrhea overnight. Last BM 2d ago, LMP 5d ago. Objective - Vital Signs/Intake and Output Vital Signs (last 24 hours): Temp Pulse Resp BP Pulse Ox 98.2 F 72 20 108/63 98 04/20/17 08:38 04/20/17 08:38 04/20/17 08:38 04/20/17 08:38 04/20/17 08:38 Intake and Output: 04/20/17 04/20/17 06:59 18:59 Intake Total 0 Balance 0 - Medications Medications: Current Medications Albuterol Sulfate (Albuterol 0.083% Inhal Perla (2.5 Mg/3 Ml) Ud) 2.5 mg IH [id number] PRN PRN Reason: Wheezing Atorvastatin Calcium (Lipitor) 10 mg PO DAILY [facility] Last Admin: 04/20/17 12:19 Dose: 10 mg Famotidine (Pepcid) 20 mg IVP DAILY [facility] Last Admin: 04/20/17 10:16 Dose: 20 mg Sodium Chloride (Sodium Chloride 0.9%) 1,000 mls @ 125 mls/hr IV .Q8H LISA Last Admin: 04/20/17 11:02 Dose: 125 mls/hr Ceftriaxone Sodium (Rocephin 1 Gram Ivpb) 1 gm in 100 mls @ 100 mls/hr IVPB DAILY LISA PRN Reason: Protocol Last Admin: 04/20/17 12:20 Dose: 100 mls/hr Insulin Human Regular (Humulin R Low) 0 units SC ACHS LISA PRN Reason: Protocol Last Admin: 04/20/17 12:11 Dose: Not Given Levothyroxine Sodium (Synthroid) 200 mcg PO DAILY [facility] Last Admin: 04/20/17 12:20 Dose: 200 mcg Metronidazole (Flagyl) 500 mg PO Q8 LISA PRN Reason: Protocol Last Admin: 04/20/17 14:06 Dose: 500 mg Morphine Sulfate (Morphine) 4 mg IVP Q4H PRN PRN Reason: Pain, moderate (4-7) Last Admin: 04/20/17 11:02 Dose: 4 mg Ondansetron HCl (Zofran Inj) 4 mg IVP Q8H PRN PRN Reason: Nausea/Vomiting Last Admin: 04/20/17 14:10 Dose: 4 mg - Labs Labs: 04/20/17 11:30 04/20/17 11:30 PT 10.9 Seconds (9.9-11.8) 04/19/17 22:13 INR 1.01 (0.93-1.08) 04/19/17 22:13 - Constitutional Appears: Well, No Acute Distress - Head Exam Head Exam: ATRAUMATIC, NORMOCEPHALIC - Eye Exam Eye Exam: EOMI, Normal appearance, PERRL - ENT Exam ENT Exam: Mucous Membranes Moist, Normal Exam - Respiratory Exam Respiratory Exam: Wheezes (L>R ), NORMAL BREATHING PATTERN. absent: Rales, Rhonchi, Stridor - Cardiovascular Exam Cardiovascular Exam: RRR, +S1, +S2. absent: Gallop, Rubs, Murmur - GI/Abdominal Exam GI & Abdominal Exam: Soft, Tenderness (mild ), Normal Bowel Sounds. absent: Distended, Guarding Additional comments: Neg [place] sign. Pt received pain meds 30 prior to exam - Extremities Exam Extremities Exam: Full ROM - Neurological Exam Neurological Exam: Alert, Awake, Oriented x3 - Psychiatric Exam Psychiatric exam: Normal Affect, Normal Mood - Skin Skin Exam: Normal Color, Warm Assessment and Plan - Assessment and Plan (Free Text) Assessment: 47yo F h/o hypercholesterolemia, asthma, DM2, hypothyroidism with cholelithiasis by Abd US and mild expiratory wheezing. Plan: Abd pain likely 2/2 cholelithiasis and biliary cholic vs acute cholecystisis - Trops neg x4, EKG shows sinus rhythm with no abnormalities, CXR neg - Lipase 31 - Abd US showed large 2.8cm gallstone located near the neck of the gallbladder, no gallbladder wall thickness or pericholecystic fluid, positive sonographic [place] sign - HIDA scan neg for duct obstruction - Rocephin/flagyl started - pain control: Morphine 4mg Q4 PRN - Surg consulted, recs appreciated cholecystectomy scheduled for tomorrow, clear liquids today, NPO after midnight - Cardio consulted for surg clearance - GI recs appreciated no acute intervention, f/u with outpt colonoscopy 2/2 FMHx of colon CA Wheezing 2/2 hx asthma - Duoneb q6 TID and q2 PRN - CXR neg Hypothyroidism - Cont. home dose levothyroxine DM2 - Humulin Asymptomatic microcytic anemia - HGB 10.6 MCV 77.5 - Recommend f/u with PCP for iron studies on d/c Patient was seen, discussed and evaluated with attending, Dr. Rogelio Peguero, OMS4 Victor M Mercer, PGY1 <Chitra Mercado B - Last Filed: 04/21/17 16:09> Objective - Vital Signs/Intake and Output Vital Signs (last 24 hours): Temp Pulse Resp BP Pulse Ox 98.2 F 63 20 103/52 L 98 04/21/17 09:27 04/21/17 09:27 04/21/17 09:27 04/21/17 09:27 04/21/17 09:27 - Medications Medications: Current Medications Albuterol Sulfate (Albuterol 0.083% Inhal Perla (2.5 Mg/3 Ml) Ud) 2.5 mg IH [id number] PRN PRN Reason: Wheezing Albuterol/Ipratropium (Duoneb 3 Mg/0.5 Mg (3 Ml) Ud) 3 ml IH TIDRESP [facility] Last Admin: 04/21/17 14:08 Dose: 3 ml Atorvastatin Calcium (Lipitor) 10 mg PO DAILY [facility] Last Admin: 04/21/17 09:20 Dose: Not Given Famotidine (Pepcid) 20 mg IVP DAILY [facility] Last Admin: 04/21/17 09:24 Dose: 20 mg Hydromorphone HCl (Dilaudid) 1 mg IVP Q4H PRN PRN Reason: Pain, severe (8-10) Last Admin: 04/21/17 14:02 Dose: 1 mg Sodium Chloride (Sodium Chloride 0.9%) 1,000 mls @ 125 mls/hr IV .Q8H [facility] Last Admin: 04/21/17 10:44 Dose: 125 mls/hr Ceftriaxone Sodium (Rocephin 1 Gram Ivpb) 1 gm in 100 mls @ 100 mls/hr IVPB DAILY LISA PRN Reason: Protocol Last Admin: 04/21/17 09:19 Dose: 100 mls/hr Insulin Human Regular (Humulin R Low) 0 units SC ACHS LISA PRN Reason: Protocol Last Admin: 04/21/17 11:54 Dose: Not Given Levothyroxine Sodium (Synthroid) 200 mcg PO DAILY LISA Last Admin: 04/21/17 09:20 Dose: Not Given Metronidazole (Flagyl) 500 mg PO Q8 LISA PRN Reason: Protocol Last Admin: 04/21/17 14:02 Dose: 500 mg Ondansetron HCl (Zofran Inj) 4 mg IVP Q8H PRN PRN Reason: Nausea/Vomiting Last Admin: 04/21/17 15:02 Dose: 4 mg - Labs Labs: PT 10.9 Seconds (9.9-11.8) 04/19/17 22:13 INR 1.01 (0.93-1.08) 04/19/17 22:13 APTT 28.5 Seconds (23.7-30.8) 04/21/17 07:00 Attending/Attestation - Attestation I have personally seen and examined this patient.: Yes I have fully participated in the care of the patient.: Yes I have reviewed all pertinent clinical information, including history, physical exam and plan: Yes Notes (Text): I have seen and examined patient at bedside. Agree with the above note with the following additions/ exceptions: Briefly this is 47 year old female with history of dyslipidemia, asthma, DM-2, hypothyroidism, cholelithiasis, multiple episodes of biliary colic who was admitted for abdominal pain secondary to acute cholecystitis vs recurrent biliary colic. Abdominal US revealed large gall stone near the neck of the gall bladder and positive Rizo's sign. Surgery consult appreciated. Patient will be NPO past midnight for lap cholecystectomy in am. Continue duonebs. Recommend outpatient anemia work up. Upon discharge patient will follow up with Dr Cayetano Chua. Dr Chitra Mercado.
[2017-04-20] MEDS: HYDROmorphone 2 mg/ml ISec IVP PRN ×2 (18:18→20:47)
[2017-04-20] MEDS: Albuterol-Ipratrop 3 mg / 0.5 (3 ml) UD IH SCH ×2 (18:41→19:47)
[2017-04-20 21:14] LABS: TROPONIN I < 0.01 ng/mL
--- NOTE | 2017-04-20 22:21 | CARD ---
APPROVED REPORT EXAM: Two-dimensional and M-mode echocardiogram with Doppler and color Doppler. INDICATION Chest Pain 2D DIMENSIONS Left Atrium (2D)3.1 (1.6-4.0cm)IVSd1.0 (0.7-1.1cm) Aortic Root (2D)3.1 (2.0-3.7cm)LVDd3.9 (3.9-5.9cm) PWd1.0 (0.7-1.1cm)LVDs2.6 (2.5-4.0cm) FS (%) 34.6 %LVEF (%)64.5 (>50%) M-Mode DIMENSIONS Aortic Cusp Exc.1.90 (1.5-2.0cm) Aortic Valve AoV Peak Mzwlkntc201.0cm/Deirdre Peak GR.13mmHg Mitral Valve MV E Radhvpgx33.8cm/sMV A Hkhscebo18.5cm/sE/A ratio1.2 TDI Lateral E' Peak V12.80cm/sMedial E' Peak V10.50cm/sE/Lateral E'6.9 E/Medial E'8.5 Pulmonary Valve PV Peak Pdyognon277.0cm/sPV Peak Grad.4mmHg Tricuspid Valve TR Peak Eaasvbtz958xh/sRAP [id number] Peak Gr.40mmHg [id number] LEFT VENTRICLE The left ventricle is normal size. There is normal left ventricular wall thickness. The left ventricular function is normal. The left ventricular ejection fraction is within the normal range. There is normal LV segmental wall motion. The left ventricular diastolic function is normal. RIGHT VENTRICLE The right ventricle is normal size. There is normal right ventricular wall thickness. The right ventricular systolic function is normal. ATRIA The left atrium size is normal. The right atrium size is normal. AORTIC VALVE The aortic valve is not well visualized. MITRAL VALVE The mitral valve is mildly thickened. TRICUSPID VALVE There is mild pulmonary hypertension. GREAT VESSELS The aortic root displays mild to moderate sclerocalcific changes of the aortic root. PERICARDIAL EFFUSION There is a trace circumferential pericardial effusion. <Conclusion> The left ventricle is normal size. There is normal left ventricular wall thickness. The left ventricular function is normal. The left ventricular ejection fraction is within the normal range. There is normal LV segmental wall motion. The left ventricular diastolic function is normal. There is mild pulmonary hypertension.
[2017-04-21] MEDS: Sodium Chloride 0.9% 1,000 ML IV SCH ×2 (03:19→10:44)
[2017-04-21] MEDS: Albuterol-Ipratrop 3 mg / 0.5 (3 ml) UD IH SCH ×3 (07:46→20:35)
[2017-04-21] MEDS: Insulin Reg-LOW-Coverage SC SCH ×4 (08:01→22:20)
[2017-04-21 08:02] LABS: BASO # 0.01 K/mm3 (0.0-2.0); BASO % 0.1 % (0.0-3.0); EOS # 0.4 (0.0-0.7); GRAN # 6.87 (1.4-6.5); GRAN % 67.4 % (50.0-68.0); HEMOGLOBIN 10.1 gm/dL (12.0-16.0); LYMPH % 19.1 % (22.0-35.0); MEAN CELL VOLUME 77.8 fL (80.0-105.0); MEAN CORPUSCULAR HEMOGLOBIN 23.9 pg (25.0-35.0); MEAN CORPUSCULAR HGB CONC 30.7 g/dl (31.0-37.0); MEAN PLATELET VOLUME 9.6 fl (7.0-11.0); MONO % 9.4 % (1.0-6.0); PLATELET COUNT 313 10^3/uL (120.0-450.0); RBC 4.23 10^6/uL (3.5-6.1); RED CELL DISTRIBUTION WIDTH 16.9 % (11.5-14.5); WHITE BLOOD COUNT 10.2 10^3/ul (4.5-11.0)
[2017-04-21 08:12] LABS: ALB/GLOB RATIO 1.1 (1.1-1.8); ALBUMIN 3.7 g/dL (3.0-4.8); ALT/SGPT 31 U/L (7-56); AST/SGOT 22 U/L (15-39); BLOOD UREA NITROGEN 8 mg/dL (7-21); GFR AFRICAN-AMERICAN > 60; GFR NON-AFRICAN AMERICAN > 60
[2017-04-21] MEDS: cefTRIAXone 1 gm 1 GM/100 ML BAG IVPB SCH (09:19)
[2017-04-21] MEDS: Levothyroxine 200 MCG TAB PO SCH (09:20)
--- NOTE | 2017-04-21 13:04 | CP.PCM.PN ---
Subjective - Date & Time of Evaluation Date of Evaluation: 04/21/17 Time of Evaluation: 12:59 - Subjective Subjective: General Surgery Dr. Norris Late entry note. Pt S&E @bedside this AM. Pt denies abd pain, N/V, F/C. Pt NPO for surgery this afternoon. Objective - Vital Signs/Intake and Output Vital Signs (last 24 hours): Temp Pulse Resp BP Pulse Ox 98.2 F 63 20 103/52 L 98 04/21/17 09:27 04/21/17 09:27 04/21/17 09:27 04/21/17 09:27 04/21/17 09:27 - Medications Medications: Current Medications Albuterol Sulfate (Albuterol 0.083% Inhal Perla (2.5 Mg/3 Ml) Ud) 2.5 mg IH [id number] PRN PRN Reason: Wheezing Albuterol/Ipratropium (Duoneb 3 Mg/0.5 Mg (3 Ml) Ud) 3 ml IH TIDRESP [facility] Last Admin: 04/21/17 07:46 Dose: 3 ml Atorvastatin Calcium (Lipitor) 10 mg PO DAILY [facility] Last Admin: 04/21/17 09:20 Dose: Not Given Famotidine (Pepcid) 20 mg IVP DAILY LISA Last Admin: 04/21/17 09:24 Dose: 20 mg Hydromorphone HCl (Dilaudid) 1 mg IVP Q4H PRN PRN Reason: Pain, severe (8-10) Last Admin: 04/20/17 20:47 Dose: 1 mg Sodium Chloride (Sodium Chloride 0.9%) 1,000 mls @ 125 mls/hr IV .Q8H [facility] Last Admin: 04/21/17 10:44 Dose: 125 mls/hr Ceftriaxone Sodium (Rocephin 1 Gram Ivpb) 1 gm in 100 mls @ 100 mls/hr IVPB DAILY LISA PRN Reason: Protocol Last Admin: 04/21/17 09:19 Dose: 100 mls/hr Insulin Human Regular (Humulin R Low) 0 units SC ACHS LISA PRN Reason: Protocol Last Admin: 04/21/17 11:54 Dose: Not Given Levothyroxine Sodium (Synthroid) 200 mcg PO DAILY [facility] Last Admin: 04/21/17 09:20 Dose: Not Given Metronidazole (Flagyl) 500 mg PO Q8 LISA PRN Reason: Protocol Last Admin: 04/21/17 05:23 Dose: Not Given Ondansetron HCl (Zofran Inj) 4 mg IVP Q8H PRN PRN Reason: Nausea/Vomiting Last Admin: 04/20/17 20:48 Dose: 4 mg - Labs Labs: PT 10.9 Seconds (9.9-11.8) 04/19/17 22:13 INR 1.01 (0.93-1.08) 04/19/17 22:13 APTT 28.5 Seconds (23.7-30.8) 04/21/17 07:00 - Constitutional Appears: Non-toxic, No Acute Distress - Head Exam Head Exam: NORMAL INSPECTION - Eye Exam Eye Exam: Normal appearance - ENT Exam ENT Exam: Mucous Membranes Moist - Respiratory Exam Respiratory Exam: NORMAL BREATHING PATTERN. absent: Accessory Muscle Use, Respiratory Distress - Cardiovascular Exam Cardiovascular Exam: absent: Bradycardia, Tachycardia - GI/Abdominal Exam GI & Abdominal Exam: Soft, Tenderness (minimal TTP RUQ). absent: Distended, Guarding, Rebound - Extremities Exam Extremities Exam: Normal Inspection - Neurological Exam Neurological Exam: Alert, Awake, Oriented x3 - Psychiatric Exam Psychiatric exam: Normal Affect, Normal Mood - Skin Skin Exam: Dry, Intact, Normal Color, Warm Assessment and Plan - Assessment and Plan (Free Text) Assessment: 47 y/o F w/ cholecystitis and biliary cholic - OR cancelled 2/2 PO intake - Pt instructed to f/u w/ Dr. Norris as outpatient for elective surgery - Pt cleared for discharge from surgical standpoint Pt discussed w/ Dr. Jr Nathna DO PGY2
[2017-04-21] MEDS: HYDROmorphone 2 mg/ml ISec IVP PRN (14:02)
[2017-04-21] MEDS ORDERED: Simethicone 80 mg Chewtab PO ONE (15:31)
--- NOTE | 2017-04-21 17:39 | CP.PCM.PN ---
<VICTOR M MERCER - Last Filed: 04/21/17 17:34> Subjective - Date & Time of Evaluation Date of Evaluation: 04/21/17 Time of Evaluation: 10:30 - Subjective Subjective: pt was seen and examined bedside. She states that her pain has improved with the meds, and that she is better since she is NPO and the food is what makes her stomach hurt. Pt also states that she notices that her wheezing has decreased. denies chest pain, palpitations, dysuria, n/v/d. Pt did not go to OR because she ingested some food because her blood sugar was too low and she was offered some by hospital staff. Pt then had a full dinner. Pt now complains of abdominal pain that is 7-9/10 after ingestion of the food, and that she feels nausea and had an episode of diarrhea directly after eating. Objective - Vital Signs/Intake and Output Vital Signs (last 24 hours): Temp Pulse Resp BP Pulse Ox 99.0 F 84 20 119/79 97 04/21/17 16:00 04/21/17 16:00 04/21/17 16:00 04/21/17 16:00 04/21/17 16:00 Intake and Output: 04/21/17 04/21/17 06:59 18:59 Intake Total 1740 0 Balance 1740 0 - Medications Medications: Current Medications Albuterol Sulfate (Albuterol 0.083% Inhal Perla (2.5 Mg/3 Ml) Ud) 2.5 mg IH [id number] PRN PRN Reason: Wheezing Albuterol/Ipratropium (Duoneb 3 Mg/0.5 Mg (3 Ml) Ud) 3 ml IH TIDRESP [facility] Last Admin: 04/21/17 14:08 Dose: 3 ml Atorvastatin Calcium (Lipitor) 10 mg PO DAILY [facility] Last Admin: 04/21/17 09:20 Dose: Not Given Famotidine (Pepcid) 20 mg IVP DAILY [facility] Last Admin: 04/21/17 09:24 Dose: 20 mg Hydromorphone HCl (Dilaudid) 1 mg IVP Q4H PRN PRN Reason: Pain, severe (8-10) Last Admin: 04/21/17 14:02 Dose: 1 mg Sodium Chloride (Sodium Chloride 0.9%) 1,000 mls @ 125 mls/hr IV .Q8H LISA Last Admin: 04/21/17 10:44 Dose: 125 mls/hr Ceftriaxone Sodium (Rocephin 1 Gram Ivpb) 1 gm in 100 mls @ 100 mls/hr IVPB DAILY LISA PRN Reason: Protocol Last Admin: 04/21/17 09:19 Dose: 100 mls/hr Insulin Human Regular (Humulin R Low) 0 units SC ACHS LISA PRN Reason: Protocol Last Admin: 04/21/17 17:16 Dose: Not Given Levothyroxine Sodium (Synthroid) 200 mcg PO DAILY [facility] Last Admin: 04/21/17 09:20 Dose: Not Given Metronidazole (Flagyl) 500 mg PO Q8 LISA PRN Reason: Protocol Last Admin: 04/21/17 14:02 Dose: 500 mg Ondansetron HCl (Zofran Inj) 4 mg IVP Q8H PRN PRN Reason: Nausea/Vomiting Last Admin: 04/21/17 15:02 Dose: 4 mg - Labs Labs: 04/21/17 07:00 04/21/17 07:00 PT 10.9 Seconds (9.9-11.8) 04/19/17 22:13 INR 1.01 (0.93-1.08) 04/19/17 22:13 APTT 28.5 Seconds (23.7-30.8) 04/21/17 07:00 - Additional Findings Additional findings: - Constitutional Appears: Well, No Acute Distress - Head Exam Head Exam: ATRAUMATIC, NORMOCEPHALIC - Eye Exam Eye Exam: EOMI, Normal appearance, PERRL - ENT Exam ENT Exam: Mucous Membranes Moist, Normal Exam - Respiratory Exam Respiratory Exam: Wheezes (improved, mild NATI), NORMAL BREATHING PATTERN. absent: Rales, Rhonchi, Stridor - Cardiovascular Exam Cardiovascular Exam: RRR, +S1, +S2. absent: Gallop, Rubs, Murmur - GI/Abdominal Exam GI & Abdominal Exam: Soft, Tenderness (mild ), Normal Bowel Sounds. absent: Distended, Guarding Additional comments: Neg [place] sign - Extremities Exam Extremities Exam: Full ROM - Neurological Exam Neurological Exam: Alert, Awake, Oriented x3 - Psychiatric Exam Psychiatric exam: Normal Affect, Normal Mood - Skin Skin Exam: Normal Color, Warm Assessment and Plan - Assessment and Plan (Free Text) Plan: 47yo F h/o hypercholesterolemia, asthma, DM2, hypothyroidism with cholelithiasis by Abd US and mild expiratory wheezing. Abd pain likely 2/2 cholelithiasis and biliary cholic vs acute cholecystisis - Abd US showed large 2.8cm gallstone located near the neck of the gallbladder, no gallbladder wall thickness or pericholecystic fluid, positive sonographic [place] sign - HIDA scan neg for duct obstruction - Rocephin/flagyl day 2 - pain control: Morphine 4mg Q4 PRN, dilaudid 1mg Q6PRN - cholecystectomy to be scheduled outpatient, f/u Dr Norris - clear liquids today, d/c on cld or soft bland diet - Surg consulted, recs appreciated - GI recs appreciated Wheezing 2/2 hx asthma - Duoneb q6 TID and q2 PRN - CXR neg Hypothyroidism - Cont. home dose levothyroxine DM2 - Humulin Asymptomatic microcytic anemia - HGB 10.6 MCV 77.5 - Recommend f/u with PCP for iron studies on d/c Patient was seen, discussed and evaluated with attending, Dr. Rogelio Mercer, PGY1 <Chitra Mercado - Last Filed: 04/26/17 16:06> Objective - Vital Signs/Intake and Output Vital Signs (last 24 hours): Temp Pulse Resp BP Pulse Ox 98.8 F 69 20 121/69 97 04/22/17 08:03 04/22/17 10:00 04/22/17 08:03 04/22/17 08:03 04/22/17 08:03 - Labs Labs: 04/21/17 07:00 04/21/17 07:00 PT 10.9 Seconds (9.9-11.8) 04/19/17 22:13 INR 1.01 (0.93-1.08) 04/19/17 22:13 APTT 28.5 Seconds (23.7-30.8) 04/21/17 07:00 Attending/Attestation - Attestation I have personally seen and examined this patient.: Yes I have fully participated in the care of the patient.: Yes I have reviewed all pertinent clinical information, including history, physical exam and plan: Yes Notes (Text): I have seen and examined patient at bedside. Agree with the above note with the following additions/ exceptions: Briefly this is 47 year old female with history of dyslipidemia, asthma, DM-2, hypothyroidism, cholelithiasis, multiple episodes of biliary colic who was admitted for abdominal pain secondary to acute cholecystitis vs recurrent biliary colic. Abdominal US revealed large gall stone near the neck of the gall bladder and positive Rizo's sign. Surgery consult appreciated. Patient was scheduled for lap cholecystectomy however patient ate by mistake therefore procedure got cancelled. As patient continued to complain of pain which got worse after eating, will keep her overnight if she can tolerate the diet. Recommend outpatient anemia work up. Upon discharge patient will follow up with Dr Cayetano Chua. Dr Chitra Mercado.
[2017-04-21] MEDS ORDERED: HYDROmorphone 1 mg/ml ISec IVP SCH (18:00)
[2017-04-21] MEDS: HYDROmorphone 1 mg/ml ISec IVP PRN (18:38)
--- NOTE | 2017-04-21 19:40 | CON ---
REASON FOR CONSULTATION: Chest pain and preoperative clearance. HISTORY OF PRESENT ILLNESS: The patient is a 47-year-old female who has a history of diabetes mellitus, hyperlipidemia, hypothyroidism, who was admitted with a diagnosis of cholecystitis. Abdominal ultrasound revealed large gallstone, 2.8 cm, near gallbladder neck. Positive sonographic Rizo sign. A HIDA scan revealed no evidence of cystic duct obstruction. The patient did report chest heaviness. The patient underwent treadmill stress test in August 2015, which was negative for ischemia. MEDICATIONS: Albuterol inhaler, Flagyl 500 mg q. 8 hours, Lipitor 10 mg once a day, Rocephin 1 gram intravenously daily, Synthroid 200 mcg once a day. PHYSICAL EXAMINATION: GENERAL: The patient is a middle-aged female who does not appear to be in any distress. VITAL SIGNS: Blood pressure 108/63, heart rate 72, temperature 98.2, respirations 20. HEENT: Normocephalic. NECK: No JVD. CHEST: Clear. HEART: S1, S2 regular. ABDOMEN: Right subcostal tenderness. EXTREMITIES: No edema. LABORATORY DATA: Hemoglobin and hematocrit 10.6 and 34.4. White count and platelet count are within normal limits. within normal limits. Total of 4 sets of troponins are negative. EKG revealed normal sinus rhythm. Preliminary report of echocardiographic study revealed normal ejection fraction with mild pulmonary hypertension. ASSESSMENT: 1. Cholelithiasis. 2. Atypical chest pain, myocardial infarction ruled out. 3. Diabetes mellitus. 4. Hyperlipidemia. RECOMMENDATIONS: The patient can be maintained on her current medications including oral Flagyl, IV Rocephin, Lipitor and Synthroid. The patient can undergo cholecystectomy from the cardiac point of view. Chan Austin MD
[2017-04-22] MEDS: HYDROmorphone 1 mg/ml ISec IVP PRN ×2 (00:14→07:34)
[2017-04-22] MEDS: Sodium Chloride 0.9% 1,000 ML IV SCH ×2 (00:25→06:38)
--- NOTE | 2017-04-22 00:57 | PN ---
DATE: 04/21/2017 SUBJECTIVE: The patient denies any chest pain. She is still experiencing abdominal pain. For some reason, the surgery was canceled as the patient was not completely kept n.p.o. PHYSICAL EXAMINATION VITAL SIGNS: Blood pressure 103/52, heart rate 63, temperature 98.2 and respirations 20. LABORATORY DATA: Hemoglobin and hematocrit 10.1 and 32.9, white count and platelet count are 10.2 and 315,000 respectively. Today *------* entirely within normal limits. Official echo report revealed normal left ventricular size, wall thickness, and systolic function with mild pulmonary hypertension. ASSESSMENT: 1. Cholelithiasis and biliary colic. 2. Cholecystitis. 3. Mild pulmonary hypertension. 4. Atypical chest pain, myocardial infarction is ruled out. RECOMMENDATIONS: Continue current Dilaudid p.r.n., continue oral Flagyl and IV Rocephin. The case was discussed with the medical and surgical team. The patient is cleared for cholecystectomy from the cardiac point. Chan Austin MD
[2017-04-22] MEDS: Insulin Reg-LOW-Coverage SC SCH ×2 (08:10→11:47)
[2017-04-22] MEDS: Albuterol-Ipratrop 3 mg / 0.5 (3 ml) UD IH SCH ×2 (08:21→13:23)
[2017-04-22] MEDS: Levothyroxine 200 MCG TAB PO SCH (10:38)
[2017-04-22] MEDS: cefTRIAXone 1 gm 1 GM/100 ML BAG IVPB SCH (10:38)
--- NOTE | 2017-04-22 10:40 | CP.PCM.PN ---
Subjective - Date & Time of Evaluation Date of Evaluation: 04/22/17 Time of Evaluation: 10:37 - Subjective Subjective: PT S&E at bedside. Patient admits to some tenderness at RUQ. She was able to tolerate her diet. patient has no bm, RUQ+. denies N/V, F/C. Objective - Vital Signs/Intake and Output Vital Signs (last 24 hours): Temp Pulse Resp BP Pulse Ox 98.8 F 72 20 121/69 97 04/22/17 08:03 04/22/17 08:03 04/22/17 08:03 04/22/17 08:03 04/22/17 08:03 Intake and Output: 04/22/17 04/22/17 06:59 18:59 Intake Total 1500 Balance 1500 - Medications Medications: Current Medications Albuterol Sulfate (Albuterol 0.083% Inhal Perla (2.5 Mg/3 Ml) Ud) 2.5 mg IH [id number] PRN PRN Reason: Wheezing Albuterol/Ipratropium (Duoneb 3 Mg/0.5 Mg (3 Ml) Ud) 3 ml IH TIDRESP [facility] Last Admin: 04/22/17 08:21 Dose: 3 ml Atorvastatin Calcium (Lipitor) 10 mg PO DAILY [facility] Last Admin: 04/21/17 09:20 Dose: Not Given Famotidine (Pepcid) 20 mg IVP DAILY [facility] Last Admin: 04/21/17 09:24 Dose: 20 mg Hydromorphone HCl (Dilaudid) 1 mg IVP Q6 PRN PRN Reason: Pain, severe (8-10) Last Admin: 04/22/17 07:34 Dose: 1 mg Sodium Chloride (Sodium Chloride 0.9%) 1,000 mls @ 125 mls/hr IV .Q8H [facility] Last Admin: 04/22/17 06:38 Dose: 125 mls/hr Ceftriaxone Sodium (Rocephin 1 Gram Ivpb) 1 gm in 100 mls @ 100 mls/hr IVPB DAILY LISA PRN Reason: Protocol Last Admin: 04/21/17 09:19 Dose: 100 mls/hr Insulin Human Regular (Humulin R Low) 0 units SC ACHS LISA PRN Reason: Protocol Last Admin: 04/22/17 08:10 Dose: Not Given Levothyroxine Sodium (Synthroid) 200 mcg PO DAILY [facility] Last Admin: 04/21/17 09:20 Dose: Not Given Metronidazole (Flagyl) 500 mg PO Q8 LISA PRN Reason: Protocol Last Admin: 04/22/17 06:36 Dose: 500 mg Ondansetron HCl (Zofran Inj) 4 mg IVP Q8H PRN PRN Reason: Nausea/Vomiting Last Admin: 04/22/17 00:19 Dose: 4 mg - Labs Labs: 04/21/17 07:00 04/21/17 07:00 PT 10.9 Seconds (9.9-11.8) 04/19/17 22:13 INR 1.01 (0.93-1.08) 04/19/17 22:13 APTT 28.5 Seconds (23.7-30.8) 04/21/17 07:00 - Constitutional Appears: Well - Head Exam Head Exam: NORMAL INSPECTION - Eye Exam Eye Exam: EOMI, Normal appearance - ENT Exam ENT Exam: Mucous Membranes Moist, Normal Exam - Neck Exam Neck Exam: Full ROM, Normal Inspection - Respiratory Exam Respiratory Exam: Clear to Ausculation Bilateral, NORMAL BREATHING PATTERN. absent: Accessory Muscle Use, Rhonchi, Wheezes, Respiratory Distress - GI/Abdominal Exam GI & Abdominal Exam: Distended, Soft, Tenderness, Normal Bowel Sounds. absent: Firm, Guarding, Rigid, Pulsatile Mass Additional comments: right upper quadrant tenderness no rebound - Extremities Exam Extremities Exam: Full ROM, Normal Capillary Refill, Normal Inspection. absent : Pedal Edema Assessment and Plan - Assessment and Plan (Free Text) Assessment: 47F cholecystitis Plan: clear for discharge. Patient is stable for discharge. not a surgical candidate at this time. Have her schedule for outpatient elective cholecystectomy c/w abx treatment resume Home Meds (current thyroid medication and diabetic medication) advance diet as tolerated. decrease fatty/fried food intake
[2017-04-22 11:57] VITALS: BP 121/69; TEMP 98.8; O2SAT 97
--- NOTE | 2017-04-22 12:04 | CP.PCM.DIS ---
<Mikel Trammell - Last Filed: 04/22/17 12:06> Provider - Provider Date of Admission: 04/19/17 18:10 Attending physician: Chitra Mercado MD Primary care physician: Anitra Peters MD Consults: Surgery - Dr. Norris Cardiology - Dr. Austin Time Spent in preparation of Discharge (in minutes): 45 Diagnosis - Discharge Diagnosis (1) Cholecystitis Status: Acute Priority: Medium (2) Chest pain Status: Resolved Priority: Low Hospital Course - Lab Results Lab Results: Micro Results 04/20/17 15:30 Urine,Clean Catch Urine Culture - Final No Growth (<1,000 CFU/ML) Most Recent Lab Values WBC 10.2 10^3/ul (4.5-11.0) 04/21/17 07:00 RBC 4.23 10^6/uL (3.5-6.1) 04/21/17 07:00 Hgb 10.1 gm/dL (12.0-16.0) L 04/21/17 07:00 Hct 32.9 % (36.0-48.0) L 04/21/17 07:00 MCV 77.8 fL (80.0-105.0) L 04/21/17 07:00 MCH 23.9 pg (25.0-35.0) L 04/21/17 07:00 MCHC 30.7 g/dl (31.0-37.0) L 04/21/17 07:00 RDW 16.9 % (11.5-14.5) H 04/21/17 07:00 Plt Count 313 10^3/uL (120.0-450.0) 04/21/17 07:00 MPV 9.6 fl (7.0-11.0) 04/21/17 07:00 Gran % 67.4 % (50.0-68.0) 04/21/17 07:00 Lymph % (Auto) 19.1 % (22.0-35.0) L 04/21/17 07:00 Grayson % (Auto) 9.4 % (1.0-6.0) H 04/21/17 07:00 Eos % (Auto) 4.0 % (1.5-5.0) 04/21/17 07:00 Baso % (Auto) 0.1 % (0.0-3.0) 04/21/17 07:00 Gran # 6.87 (1.4-6.5) H 04/21/17 07:00 Lymph # 2.0 (1.2-3.4) 04/21/17 07:00 Grayson # 1.0 (0.1-0.6) H 04/21/17 07:00 Eos # 0.4 (0.0-0.7) 04/21/17 07:00 Baso # 0.01 K/mm3 (0.0-2.0) 04/21/17 07:00 PT 10.9 Seconds (9.9-11.8) 04/19/17 22:13 INR 1.01 (0.93-1.08) 04/19/17 22:13 APTT 28.5 Seconds (23.7-30.8) 04/21/17 07:00 Sodium 138 mmol/L (132-148) 04/21/17 07:00 Potassium 3.8 mmol/L (3.6-5.0) 04/21/17 07:00 Chloride 104 mmol/L (98-107) 04/21/17 07:00 Carbon Dioxide 27 mmol/L (21-33) 04/21/17 07:00 Anion Gap 11 (10-20) 04/21/17 07:00 BUN 8 mg/dL (7-21) 04/21/17 07:00 Creatinine 0.5 mg/dL (0.5-1.4) 04/21/17 07:00 Est GFR ( Amer) > 60 04/21/17 07:00 Est GFR (Non-Af Amer) > 60 04/21/17 07:00 POC Glucose (mg/dL) 88 mg/dL (65-110) 04/20/17 21:30 Random Glucose 87 mg/dL (70-110) 04/21/17 07:00 Calcium 9.0 mg/dL (8.4-10.5) 04/21/17 07:00 Total Bilirubin 0.5 mg/dL (0.2-1.3) 04/21/17 07:00 AST 22 U/L (15-39) 04/21/17 07:00 ALT 31 U/L (7-56) 04/21/17 07:00 Alkaline Phosphatase 122 U/L (38-133) 04/21/17 07:00 Lactate Dehydrogenase 381 U/L (333-699) 04/20/17 20:39 Total Creatine Kinase 62 U/L (35-230) 04/20/17 20:39 Troponin I < 0.01 ng/mL 04/20/17 20:39 Total Protein 7.2 g/dL (5.8-8.3) 04/21/17 07:00 Albumin 3.7 g/dL (3.0-4.8) 04/21/17 07:00 Globulin 3.5 gm/dL 04/21/17 07:00 Albumin/Globulin Ratio 1.1 (1.1-1.8) 04/21/17 07:00 Lipase 31 U/L (23-300) 04/19/17 13:01 Urine Color Yellow (YELLOW) 04/19/17 13:38 Urine Appearance Clear (CLEAR) 04/19/17 13:38 Urine pH 6.0 (4.7-8.0) 04/19/17 13:38 Ur Specific Dawson >= 1.030 (1.005-1.035) 04/19/17 13:38 Urine Protein 30 mg/dL (<30 mg/dL) H 04/19/17 13:38 Urine Glucose (UA) Negative mg/dL (NEGATIVE) 04/19/17 13:38 Urine Ketones Negative mg/dL (NEGATIVE) 04/19/17 13:38 Urine Blood Large (NEGATIVE) H 04/19/17 13:38 Urine Nitrate Negative (NEGATIVE) 04/19/17 13:38 Urine Bilirubin Negative (NEGATIVE) 04/19/17 13:38 Urine Urobilinogen 0.2 E.U./dL (<1 E.U./dL) 04/19/17 13:38 Ur Leukocyte Esterase Negative Letty/uL (NEGATIVE) 04/19/17 13:38 Urine RBC Tntc /hpf (0-2) 04/19/17 13:38 Urine WBC 5 - 10 /hpf (0-6) 04/19/17 13:38 Ur Epithelial Cells 10 - 12 /hpf (0-5) 04/19/17 13:38 Urine Bacteria Trace (NEG) 04/19/17 13:38 Urine HCG, Qual Negative (NEGATIVE) 04/20/17 15:30 - Hospital Course Hospital Course: 47 y/o F with PMH of DM type II, Asthma, HLD, and Hypothyroidism presented to the ED on 04/19/17 for abdominal pain x3 days. Pt was localized to the RUQ and sharp in nature. Pt was was admitted for acute cholecystitis. Pt was placed on Flagyl and Rocephin. Pt had abdominal US which showed large 2.8cm gallstone located near the neck of the gallbladder, no gallbladder wall thickness or pericholecystic fluid, positive sonographic [place] sign. HIDA scan was negative for obstruction. Pt underwent cardiac clearance and had echocardiogram done which showed normal EF. Pt was scheduled for surgery inpatient, but was given food the morning of surgery while she was suppose to be NPO. Pt will follow up outpatient with Surgery to schedule cholecystectomy electively. Pt was advised to advance diet slowly and given scripts for Zofran and Percocet. Discharge Exam - Head Exam Head Exam: ATRAUMATIC, NORMAL INSPECTION, NORMOCEPHALIC - ENT Exam ENT Exam: Mucous Membranes Moist, Normal Exam - Respiratory Exam Respiratory Exam: NORMAL BREATHING PATTERN, UNREMARKABLE - Cardiovascular Exam Cardiovascular Exam: RRR, +S1, +S2 - GI/Abdominal Exam GI & Abdominal Exam: Normal Bowel Sounds, Soft, Tenderness (Diffuse, worse in RUQ) - Extremities Exam Extremities exam: normal inspection - Neurological Exam Neurological exam: Alert, Oriented x3 - Psychiatric Exam Psychiatric exam: Normal Affect, Normal Mood - Skin Skin Exam: Intact, Normal Color, Warm Discharge Plan - Discharge Medications Prescriptions: Albuterol 0.083% [Albuterol 0.083% Inhal Perla (2.5 mg/3 ml) UD] 2.5 mg IH [id number] PRN #7 PRN Reason: Wheezing Amoxicillin/Potassium Clav [Augmentin 500-125 Tablet] 1 each PO Q12 #16 tablet Metronidazole [Flagyl] 500 mg PO Q8H #24 tablet Ondansetron HCl [Zofran] 4 mg PO Q4H #12 tablet oxyCODONE/Acetaminophen [Percocet 5/325 mg Tab] 1 ea PO Q6H PRN #6 tab PRN Reason: pain - Follow Up Plan Condition: STABLE Disposition: HOME/ ROUTINE Instructions: Cholecystitis (DC) Additional Instructions: Ms. Spann, You were treated for a stone in the neck of your gallbladder (cholelithiasis). These are your recommendations: 1. Please followup with your primary care provider w/i 2 weeks for management of your asthma, diabetes and cholesterol. 2. Please followup with Dr. Norris, the surgeon who will followup with you regarding your cholecystectomy (removal of gallbladder). Medications: Flagyl: Take ONE 500mg tab EVERY EIGHT (8) HOURS for 8 days Augmentin: Take ONE tab EVERY TWELVE (12) HOURS for 8 days Percocet: Take one tab every 6 hours as needed for pain Take your synthroid, Mevacor, metformin, prednisone, albuterol as prescribed. You will be provided with scripts for these medications. Take them to your pharmacy to obtain the medications and take as prescribed. Referrals: Marco Antonio Norris MD [Staff Provider] - Anitra Peters MD [Primary Care Provider] - <eLatha Koenig - Last Filed: 04/22/17 21:03> Provider - Provider Date of Admission: 04/19/17 18:10 Attending physician: Chitra Mercado MD Primary care physician: Anitra Peters MD Hospital Course - Lab Results Lab Results: Micro Results 04/20/17 15:30 Urine,Clean Catch Urine Culture - Final No Growth (<1,000 CFU/ML) Most Recent Lab Values WBC 10.2 10^3/ul (4.5-11.0) 04/21/17 07:00 RBC 4.23 10^6/uL (3.5-6.1) 04/21/17 07:00 Hgb 10.1 gm/dL (12.0-16.0) L 04/21/17 07:00 Hct 32.9 % (36.0-48.0) L 04/21/17 07:00 MCV 77.8 fL (80.0-105.0) L 04/21/17 07:00 MCH 23.9 pg (25.0-35.0) L 04/21/17 07:00 MCHC 30.7 g/dl (31.0-37.0) L 04/21/17 07:00 RDW 16.9 % (11.5-14.5) H 04/21/17 07:00 Plt Count 313 10^3/uL (120.0-450.0) 04/21/17 07:00 MPV 9.6 fl (7.0-11.0) 04/21/17 07:00 Gran % 67.4 % (50.0-68.0) 04/21/17 07:00 Lymph % (Auto) 19.1 % (22.0-35.0) L 04/21/17 07:00 Grayson % (Auto) 9.4 % (1.0-6.0) H 04/21/17 07:00 Eos % (Auto) 4.0 % (1.5-5.0) 04/21/17 07:00 Baso % (Auto) 0.1 % (0.0-3.0) 04/21/17 07:00 Gran # 6.87 (1.4-6.5) H 04/21/17 07:00 Lymph # 2.0 (1.2-3.4) 04/21/17 07:00 Grayson # 1.0 (0.1-0.6) H 04/21/17 07:00 Eos # 0.4 (0.0-0.7) 04/21/17 07:00 Baso # 0.01 K/mm3 (0.0-2.0) 04/21/17 07:00 PT 10.9 Seconds (9.9-11.8) 04/19/17 22:13 INR 1.01 (0.93-1.08) 04/19/17 22:13 APTT 28.5 Seconds (23.7-30.8) 04/21/17 07:00 Sodium 138 mmol/L (132-148) 04/21/17 07:00 Potassium 3.8 mmol/L (3.6-5.0) 04/21/17 07:00 Chloride 104 mmol/L (98-107) 04/21/17 07:00 Carbon Dioxide 27 mmol/L (21-33) 04/21/17 07:00 Anion Gap 11 (10-20) 04/21/17 07:00 BUN 8 mg/dL (7-21) 04/21/17 07:00 Creatinine 0.5 mg/dL (0.5-1.4) 04/21/17 07:00 Est GFR ( Amer) > 60 04/21/17 07:00 Est GFR (Non-Af Amer) > 60 04/21/17 07:00 POC Glucose (mg/dL) 88 mg/dL (65-110) 04/20/17 21:30 Random Glucose 87 mg/dL (70-110) 04/21/17 07:00 Calcium 9.0 mg/dL (8.4-10.5) 04/21/17 07:00 Total Bilirubin 0.5 mg/dL (0.2-1.3) 04/21/17 07:00 AST 22 U/L (15-39) 04/21/17 07:00 ALT 31 U/L (7-56) 04/21/17 07:00 Alkaline Phosphatase 122 U/L (38-133) 04/21/17 07:00 Lactate Dehydrogenase 381 U/L (333-699) 04/20/17 20:39 Total Creatine Kinase 62 U/L (35-230) 04/20/17 20:39 Troponin I < 0.01 ng/mL 04/20/17 20:39 Total Protein 7.2 g/dL (5.8-8.3) 04/21/17 07:00 Albumin 3.7 g/dL (3.0-4.8) 04/21/17 07:00 Globulin 3.5 gm/dL 04/21/17 07:00 Albumin/Globulin Ratio 1.1 (1.1-1.8) 04/21/17 07:00 Lipase 31 U/L (23-300) 04/19/17 13:01 Urine Color Yellow (YELLOW) 04/19/17 13:38 Urine Appearance Clear (CLEAR) 04/19/17 13:38 Urine pH 6.0 (4.7-8.0) 04/19/17 13:38 Ur Specific Dawson >= 1.030 (1.005-1.035) 04/19/17 13:38 Urine Protein 30 mg/dL (<30 mg/dL) H 04/19/17 13:38 Urine Glucose (UA) Negative mg/dL (NEGATIVE) 04/19/17 13:38 Urine Ketones Negative mg/dL (NEGATIVE) 04/19/17 13:38 Urine Blood Large (NEGATIVE) H 04/19/17 13:38 Urine Nitrate Negative (NEGATIVE) 04/19/17 13:38 Urine Bilirubin Negative (NEGATIVE) 04/19/17 13:38 Urine Urobilinogen 0.2 E.U./dL (<1 E.U./dL) 04/19/17 13:38 Ur Leukocyte Esterase Negative Letty/uL (NEGATIVE) 04/19/17 13:38 Urine RBC Tntc /hpf (0-2) 04/19/17 13:38 Urine WBC 5 - 10 /hpf (0-6) 04/19/17 13:38 Ur Epithelial Cells 10 - 12 /hpf (0-5) 04/19/17 13:38 Urine Bacteria Trace (NEG) 04/19/17 13:38 Urine HCG, Qual Negative (NEGATIVE) 04/20/17 15:30 Attending/Attestation - Attestation I have personally seen and examined this patient.: Yes I have fully participated in the care of the patient.: Yes I have reviewed all pertinent clinical information, including history, physical exam and plan: Yes Notes (Text): 04/22/17 21:02 patient seen and examined at bedside. Labs, vitals and overnight issues reveiwed. She feels improved in her RUQ pain but has some soreness. Denies nausea today. Surgery follow up appreciated and outpatient [email or web address] advised considering stability in symptoms. Agree with the discharge plan outlined by the resident with analgesic support and low fat diet upon discharge.
[2017-04-22 13:00] VITALS: PULSE 69
== END 2017-04-22 14:10 | disposition home or self-care (01) ==
LOC: ED 11:25 → ERH 18:10 → 3RNO 21:18 → OBSVTOIN 04-21 10:10 → INTOOBSV 04-21 10:10 → 3RNO 04-21 18:32
PROVIDERS: ADMIT Internal Medicine; ATTEND Hospitalist
DX: K80.00 Calculus of gallbladder with acute cholecystitis without obstruction (principal); R07.89 Other chest pain; J45.909 Unspecified asthma, uncomplicated; E11.9 Type 2 diabetes mellitus without complications; E03.9 Hypothyroidism, unspecified; E78.5 Hyperlipidemia, unspecified; E78.00 Pure hypercholesterolemia, unspecified; D50.9 Iron deficiency anemia, unspecified; I27.2 Other secondary pulmonary hypertension; Z79.82 Long term (current) use of aspirin; Z79.84 Long term (current) use of oral hypoglycemic drugs; Z80.0 Family history of malignant neoplasm of digestive organs
CPT/HCPCS: 36415; 71020; 76700; 78227; 80053; 81001; 82550; 82948; 83615; 83690; 84484; 84703; 85025; 85610; 85730; 87086; 93005; 93306; 94640; 94760; 96361; 96365; 96366; 96367; 96375; 96376; 99285; A9537; C9113; G0378; J0696; J1170; J1885; J2270; J2405; J2543; J7040